=== PATIENT | female | born 1965 | race Caucasian/White ===

== ENCOUNTER 2023-02-09 12:42 | Outpatient (AMB) | payer OTHER, SELFPAY ==
--- NOTE | 2023-02-09 12:48 | AM.OFFWIN_ITS ---
Intake Vital Signs 02/09/23 12:49 Weight 161 lb BP 130/80 Blood Pressure Location Rt brachial Position Sitting Pulse 89 Pulse Source Pulse Oximeter Pulse Oximetry (%) 99 Oxygen Delivery Method Room Air Intake Visit Reasons: [employer], pain in left 4th toe Intake Note: Patient here for pain in second toe. she states she stubbed it and believes she may have broken it. Patient Tobacco Use Status: Never used Tobacco Allergies No Known Allergies Allergy (Verified 02/09/23 12:50) Do you need a note to return to daycare/school/sports/work: No HPI HPI Comments History of Present Illness Details This is a 58-year-old female who presents to the office today for sick visit. Patient complaining of persistent left toe pain, swelling, and ecchymosis since she stubbed her toe 2 weeks ago. Patient states her pain actually started to improve but then got more painful and swollen after going back to work and walking around. She denies any numbness/weakness/paresthesias of extremities. PFSH Social History Patient Tobacco Use Status: Never used Tobacco Review of Systems Const All systems reviewed & are unremarkable except as noted in HPI and below Reports no additional complaints Eyes Reports no additional complaints ENT Reports no additional complaints Card Reports no additional complaints Resp Reports no additional complaints GI Reports no additional complaints Reports no additional complaints Musc Reports no additional complaints Skin/Breast Reports system reviewed and no additional complaints, except as documented Neuro Reports no additional complaints Psych Reports no additional complaints Endo Reports no additional complaints All/Lymph Reports no additional complaints Aller/Immun Reports no additional complaints Physical Exam Vital Signs: Last Vital Signs Pulse 89 02/09/23 12:49 BP 130/80 02/09/23 12:49 Pulse Ox 99 02/09/23 12:49 Oxygen Delivery Method Room Air 02/09/23 12:49 Const General: cooperative, healthy appearing, no acute distress and well developed Orientation/consciousness: patient oriented x3 HEENT Head: Yes normal to inspection Ears: hearing grossly normal bilaterally General nose exam: Normal external nose present Face and sinus: Yes normal facial exam Mouth: Normal oral and palatal mucosa present Eyes General: appearance normal, both eyes and all related structures Pupils: Equal, round and reactive pupils present EOM: EOMs intact bilaterally Resp Effort & Inspection: normal respiratory effort and no respiratory distress Auscultation: clear to auscultation bilaterally Cardio Rate: regular rate Rhythm: regular rhythm Heart sounds: no gallops, no murmurs and no rubs Peripheral pulses: Peripheral pulses 2+ throughout GI Inspection: No distended Palpation (GI): Soft to palpation and nontender Auscultation: normal bowel sounds Skin General skin exam: no rashes or lesions noted Neuro General: patient oriented x3 Cranial nerves: Yes CN's II-XII intact bilaterally and Yes Equal, round and reactive pupils present Gait exam (Neuro): Normal gait present Motor exam (neuro): 5/5 motor strength present throughout Extrem Other: Swelling, ecchymosis, and tenderness to palpation of the left 2nd toe. No tenderness to palpation of the metatarsals. General: Yes no clubbing, cyanosis or edema Psych Appearance: grossly normal Mental Status: mental status grossly normal Assessment & Plan Assessment & Plan (1) Fracture of second toe, left, closed: Code(s): S92.502A - Displaced unspecified fracture of left lesser toe(s), initial encounter for closed fracture Plan: This is a 58-year-old female who presents with left 2nd toe pain, swelling, and ecchymosis x2 weeks after stubbing her toe. On physical examination, there is swelling and ecchymosis as well as tenderness to palpation of the entire left 2nd toe. No tenderness to palpation of the metatarsals. X-ray of the left foot was obtained and shows a very obvious fracture of the left 2nd toe. No nail bed injury to suggest an open fracture. Patient was sent home with a postoperative shoe for supportive management. Recommend rest/activity modification, ice to the area, and elevation of the extremity. Continue with acetaminophen/ibuprofen for pain management as long as patient has no medical contraindications. Orthopedic surgery referral was given to the patient. The patient was instructed to follow-up here for persistent/worsening symptoms. Patient verbalized understanding and is agreeable with the plan. Orders: Orders XR foot LT 2V Today S92.502A - Displaced unspecified fracture of left lesser toe(s), initial encounter for closed fracture Referrals Orthopedics Referral S92.502A - Displaced unspecified fracture of left lesser toe(s), initial encounter for closed fracture Coding Level of Care Code New Pt Level 3 (17200) Diagnoses Fracture of second toe, left, closed S92.502A
[2023-02-09 12:49] VITALS: BP 130/80; PULSE 89; O2SAT 99
== END 2023-02-09 13:27 | disposition home or self-care (01) ==
PROVIDERS: Visit Provider Physician Assistant Medical
DX: S92.502A Displaced unspecified fracture of left lesser toe(s), initial encounter for closed fracture (principal)
CPT/HCPCS: 99203

== ENCOUNTER 2023-02-09 13:04 | Outpatient (REF) | payer OTHER, SELFPAY ==
--- NOTE | ~2023-02-09 | XR_ITS ---
EXAMINATION: XR FOOT, LEFT CLINICAL INFORMATION: Displaced fracture unspecified COMPARISON: None TECHNIQUE: AP, lateral, and oblique views of the left foot. FINDINGS: Fracture of the proximal phalanx second digit. Oblique in nature. Mid to distal proximal phalanx. There is felt to be callus formation therefore this may represent a subacute fracture. Fracture line still well visible. Mildly distracted fracture. XR/XR foot LT 2V IMPRESSION: Confirms oblique fracture of the mid to distal aspect of the proximal phalanx second digit. There is felt to be some callus formation here. Fracture line is still well visible. Mildly distracted fracture
== END 2023-02-09 13:05 | disposition home or self-care (01) ==
LOC: HO.HMGCX 13:04
PROVIDERS: Visit Provider Physician Assistant Medical
DX: S92.502A Displaced unspecified fracture of left lesser toe(s), initial encounter for closed fracture (principal)
CPT/HCPCS: 73620

== ENCOUNTER 2023-02-19 10:25 | Outpatient (AMB) | payer OTHER, SELFPAY ==
--- NOTE | 2023-02-19 10:31 | A.OFFVIS_ITS ---
Intake Vital Signs 02/19/23 10:39 Height 5 ft 5 in Weight 162 lb BMI 27.0 Intake Visit Reasons: fc-Fracture of second toe, left, Intake Note: Lilli a 58 year old female who presents today as a new patient for an evaluation of left 2nd toe fracture. Patient reports stubbing her toes about 2 weeks prior to walk-in visit on 02/09/23, xrays were taken and was placed in a post op shoe. Her pain gets worse throughout the day. Continues to have swelling. States pain is better at rest, icing and elevation. Allergies No Known Allergies Allergy (Verified 02/09/23 12:50) HPI fc-Fracture of second toe, left, HPI Details 58-year-old female who presents to the [facility] today for left 2nd toe injury s/p stubbing her toe, 01/26/23. She was seen at walk-in clinic on 02/09/23 where x-rays were taken and she was placed in a post-op shoe. She states she has pain and swelling in her left toe which is aggravated throughout the day. She finds relief with resting, icing and elevation. 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 She does have some swelling along the 2nd toe along with tenderness to palpation over the fracture site. NVI. Office Procedures Fracture Care Fracture Billing Code: Fracture Billing Code Results Reviewed Results Reviewed: X-rays of the left foot obtained in the ED on February 09 show an oblique fracture of the mid to distal aspect of the proximal phalanx of 2nd toe. Assessment & Plan Assessment & Plan (1) Fracture of second toe, left, closed: Code(s): S92.502A - Displaced unspecified fracture of left lesser toe(s), initial encounter for closed fracture Qualifiers: Encounter type: initial encounter Qualified Code(s): S92.502A - Displaced unspecified fracture of left lesser toe(s), initial encounter for closed fracture Plan She was given an off the shelf short boot which she will wear weight bearing as tolerated. She can increase activity as tolerated and ween herself out of the boot once her swelling and pain improves to transition into a street shoe. If symptoms persist or worsens over the next few weeks, patient will contact the office, otherwise follow-up as needed. Patient Instructions: Scribed for [place] PA-C, by [facility] or medical, on 02/19/2023 at 10:30 AM EST. I, [place] PA-C, have personally reviewed and agree with the information entered by the scribe. Coding Level of Care Code New Pt Level 3 (05926) Diagnoses Closed fracture of phalanx of left second toe, initial encounter S92.502A Encounter type: initial encounter CPT Codes Fracture Care - Fracture Billing Code: Fracture Billing Code ([id number])
[2023-02-19 10:39] VITALS: BMI 27.0
== END 2023-02-19 10:56 | disposition home or self-care (01) ==
PROVIDERS: Visit Provider Physician Assistant
DX: S92.502A Displaced unspecified fracture of left lesser toe(s), initial encounter for closed fracture (principal)
CPT/HCPCS: 99203

== ENCOUNTER → 2023-02-19 10:25 | Outpatient (BNVA) | payer OTHER, SELFPAY | PROVIDERS: Visit Provider Physician Assistant ==